=== PATIENT | male | born 1965 | race Caucasian/White ===

== ENCOUNTER 2016-08-23 10:07 | Day surgery (SDC) | payer OTHER ==
[2016-08-18 11:41] VITALS: BMI 25.8
[2016-08-23] MEDS ORDERED: PROPOFOL 20 ML ONE ×2 (11:14)
[2016-08-23 12:28] VITALS: TEMP 98.1
[2016-08-23 13:19] VITALS: BP 118/74; PULSE 84
== END 2016-08-23 12:35 | disposition home or self-care (01) ==
LOC: FASU-ENDO 10:07
PROVIDERS: ATTEND Internal Medicine Gastroenterology
PROC: 0DJD8ZZ Inspection of Lower Intestinal Tract, Via Natural or Artificial Opening Endoscopic (ICD-10-PCS; principal; 2016-08-23 11:15)
DX: Z12.11 Encounter for screening for malignant neoplasm of colon (principal); K57.30 Diverticulosis of large intestine without perforation or abscess without bleeding